=== PATIENT | male | born 1950 | race Caucasian/White ===

== ENCOUNTER 2018-11-17 23:26 | Inpatient (IN) ==
[2018-11-17] MEDS ORDERED: NS 1,000 ML IV ONE ×2 (23:42→23:44)
[2018-11-17] MEDS ORDERED: NS 500 ML IV ONE (23:44)
[2018-11-17] MEDS ORDERED: LEVOPHED 8 MG in D5 1/2 NS 250 ML IV SCH ×4 (23:45)
[2018-11-17] MEDS ORDERED: SOLU-MEDROL IV ONE (23:51)
[2018-11-17] MEDS ORDERED: LEVAQUIN 750 MG/D5W 750 MG/150 ML IVPB IV ONE (23:52)
[2018-11-17] MEDS ORDERED: VANCOMYCIN 1 GM/NS 1 GM/250 ML IVPB IV ONE (23:53)
[2018-11-17 23:55] LABS: BASO# 0.02 X1000 (0.0-0.2); BASO% 0.1 % (0.0-0.8); EOS# 0.01 X1000 (0.0-0.7); EOS% 0.1 % (0.0-10.0); HEMATOCRIT 30.2 % (42.0-52.0); HEMOGLOBIN 9.3 g/dL (14.0-18.0); IMM GRAN# 0.03 X1000 (0.0-0.04); IMM GRAN% 0.2 % (0.0-0.5); LYMPH# 0.41 X1000 (1.2-3.4); MCH 23.8 PG (27-31); MCHC 30.8 g/dL (33-37); MCV 77.2 FL (81-99); MONO# 0.31 X1000 (0.11-0.59); MONO% 2.3 % (1.7-9.3); MPV 12.3 FL (7.4-10.4); NEUT# 12.78 X1000 (1.4-6.5); NEUT% 94.3 % (42.2-75.2); PLT 165 X1000 (130-400); RBC 3.91 XMIL (4.7-6.1); RDW 20.2 % (11.5-14.5); WBC 13.56 X1000 (4.8-10.8)
[2018-11-17] MEDS ORDERED: TYLENOL PO ONE (23:55)
[2018-11-17] MEDS ORDERED: BENADRYL IV ONE (23:56)
[2018-11-17 23:59] LABS: ALLEN TEST YES; BE -1.3 mmoll (-3.0-3.0); BLOOD TYPE ARTERIAL; HCO3-(ACT) 23.9 mmoll (20.0-26.0); METHB 1.1 % (0.0-1.5); O2(CT) 13.3 mL/dL (15.0-23.0); O2HB 95.7 % (95.0-99.0); PCO2(98.6) 32 mmHg (35-45); PO2(98.6) 183 mmHg (60-100); SAMPLE BLOOD; SAO2 100.1 % (95.0-100.0); THB 9.6 g/dL (11.5-17.4); pH(98.6) 7.45 (7.35-7.45)
[2018-11-18] LABS: MODALITY NRB
[2018-11-18 00:42] LABS: ACETAMINOPHEN < 1.2 ug/mL (10-30); AGAP 12; ALB/GLOB RATIO 1.3; ALBUMIN 3.7 g/dL (3.5-5.0); ALKALINE PHOSPHATASE 89 U/L (32-122); BUN 13 mg/dL (8-22); CALCIUM 8.1 mg/dL (8.8-10.2); CHLORIDE 109 mmol/L (98-107); COSMO 284; CREATININE 1.5 mg/dL (0.7-1.2); ESTIMATED GFR 46; GLUCOSE 151 mg/dL (70-104); GOT 30 U/L (10-34); GPT 20 U/L (10-44); POTASSIUM 4.1 mmol/L (3.5-5.1); SALICYLATES < 3.00 mg/dL (3-10); SODIUM 141 mmol/L (136-145); TCO2 20 mmol/L (25-35); TOTAL BILIRUBIN 0.79 mg/dL (0.20-1.00); TOTAL PROTEIN 6.5 g/dL (6.3-8.3)
[2018-11-18 01:24] LABS: CK INDEX 1.6 (0.0-2.5); CK-MB 11.38 ng/mL (0.0-5.0)
[2018-11-18] MEDS ORDERED: TYLENOL PR ONE (01:25)
[2018-11-18 02:34] LABS: URINE SOURCE CATH
[2018-11-18 02:36] LABS: BILIRUBIN URINE NEGATIVE (NEGATIVE); BLOOD URINE NEGATIVE (NEGATIVE); COLOR YELLOW; GLUCOSE URINE NEGATIVE (NEGATIVE); KETONE URINE NEGATIVE (NEGATIVE); LEUKOCYTES URINE NEGATIVE (NEGATIVE); NITRITE URINE NEGATIVE (NEGATIVE); PROTEIN URINE TRACE mg/dL (NEGATIVE); SP GRAVITY URINE 1.011; TURBIDITY URINE CLEAR (CLEAR); UROBILINOGEN URINE NORMAL (NORMAL)
[2018-11-18 02:37] LABS: UR EPITHELIAL CELLS <10 /HPF (<10); URINE BACTERIA NEGATIVE /HPF; URINE RBC <10 /HPF (<10); URINE WBC <10 /HPF (<10)
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
[2018-11-18 02:49] LABS: UR AMPHETAMINES QUAL NONE DETECTED (NONE DETECT); UR BARBITUATES QUAL NONE DETECTED (NONE DETECT); UR BENZODIAZEPIN QUAL NONE DETECTED (NONE DETECT); UR CANNABINOIDS QUAL NONE DETECTED (NONE DETECT); UR COCAINE QUAL NONE DETECTED (NONE DETECT); UR METHADONE QUAL NONE DETECTED (NONE DETECT); UR OPIATES QUAL NONE DETECTED (NONE DETECT); UR OXYCODONE QUAL NONE DETECTED (NONE DETECT); UR PCP QUAL NONE DETECTED (NONE DETECT)
--- NOTE | 2018-11-18 03:01 | HISTORY AND PHYSICAL ---
PRIMARY CARE PHYSICIAN: Dr. Anthony Muniz. CHIEF COMPLAINT: Unresponsive, altered mental status. HISTORY OF PRESENTING ILLNESS: A 68-year-old male with a history of diabetes mellitus type 2, coronary artery disease, COPD, CHF and hyperlipidemia who was brought to the emergency department due to patient was unresponsive. As per family members, he was complaining of being cold and was having some difficulty breathing. Later throughout the night he has a became more altered and confused and was not responsive, so subsequently EMS was called and the patient was brought to the emergency department. In the ED, he was evaluated, he was hypotensive with a systolic blood pressure of 82. His chest x-ray shows possibility of a pneumonia. Subsequently, he will require admission to ICU for further management. At the time of my examination, patient was basically groaning and moaning, and most of the history is obtained from family members. PAST MEDICAL HISTORY: Includes diabetes mellitus type 2, coronary artery disease, COPD, CHF, hyperlipidemia. PAST SURGICAL HISTORY: Coronary artery bypass, recent coronary stent. ALLERGIES: Penicillin. CURRENT MEDICATIONS: Include aspirin 325 mg p.o. daily, atorvastatin 80 mg p.o. daily, carvedilol 3.125 mg p.o. b.i.d., glimepiride 2 mg p.o. b.i.d., isosorbide mononitrate 30 mg p.o. daily, lisinopril 5 mg p.o. daily, metformin 1000 mg p.o. b.i.d., temazepam 15 mg p.o. at bedtime. SOCIAL HISTORY: He has a 40+ pack years history of smoking. No history of alcohol or illicit drug use. FAMILY HISTORY: No history of coronary disease. REVIEW OF SYSTEMS: Unable to obtain due to patient's current condition. PHYSICAL EXAMINATION: GENERAL: The patient is basically moaning but he is resting comfortably. He arouses occasionally. VITAL SIGNS: Pulse 84, respirations 22, blood pressure 69/47. HEENT: Atraumatic, normocephalic. PERRLA. NECK: No masses. CHEST: Rhonchi. CARDIOVASCULAR: Regular rate and rhythm. ABDOMEN: Soft. Positive bowel sounds. EXTREMITIES: Trace edema. NEUROLOGIC: He is awake and arousable. GENITOURINARY: No bladder distention. SKIN: Warm. LABORATORIES AND STUDIES: WBC 13.56, hemoglobin 9.3, hematocrit 30.2, platelets 165,000. Blood gas shows pH 7.45, pCO2 is 32, PO2 is 183, bicarb 23.9. Sodium 141, potassium 4.1, chloride 109, CO2 is 20, BUN is 13, creatinine is 1.5. Glucose is 151. Troponin is 0.200. ASSESSMENT: A 68-year-old male with a history of diabetes mellitus type 2, coronary artery disease, status post recent stents, chronic obstructive pulmonary disease, congestive heart failure, hyperlipidemia who was brought to the emergency department due to patient being unresponsive. Apparently, patient was having chills and was initially complaining of difficulty breathing. He was brought to the emergency department. He still was altered. Due to his presenting symptoms, he will require admission for further management. 1. Altered mental status, unresponsive. 2. Suspected pneumonia. 3. Probable sepsis. 4. Chronic obstructive pulmonary disease exacerbation. 5. Elevated troponin status post recent coronary stent. 6. Congestive heart failure exacerbation. 7. Diabetes mellitus type 2. PLAN: 1. We will admit patient to ICU. 2. Continue with neuro checks. 3. We will check blood cultures, urine cultures and start patient on IV antibiotics. 4. We will continue with DuoNebs and supplemental oxygen. If he worsens, we will put him on BiPAP. If he further deteriorates he may need to be intubated. 5. We will continue to trend troponin's and consult Cardiology. 6. Will monitor blood glucose and put patient on sliding scale insulin regimen. 7. Put patient on DVT prophylaxis with heparin. 8. We will continue to follow and reassess. Make further recommendation based on patient's clinical course. 9. Patient's condition is guarded. cc: Will Martino MD
[2018-11-18] MEDS ORDERED: HEPARIN SUBQ SCH (04:19)
[2018-11-18] MEDS ORDERED: VANCOMYCIN IV PER PHARMACY MISC SCH (04:19)
--- NOTE | 2018-11-18 04:36 | EKG Report ---
Test Performed on : 11/18/2018 02:37:14 AM Test Reason : pain Blood Pressure : / mmHG Vent. Rate : 084 BPM Atrial Rate : 084 BPM P-R Int : 198 ms QRS Dur : 098 ms QT Int : 390 ms P-R-T Axes : 058 -04 083 degrees QTc Int : 460 ms Normal sinus rhythm. Normal ECG When compared with ECG of 28-NOV-2012 00:48, premature atrial complexes. are no longer present Nonspecific T wave abnormality no longer evident in Inferior leads Nonspecific T wave abnormality, improved in Lateral leads Unconfirmed Result
[2018-11-18] MEDS: DUONEB (A & A) INH SCH ×5 (05:29→22:50)
[2018-11-18] MEDS ORDERED: VANCOMYCIN 1,450 MG in NS 250 ML IV ONE (08:00)
--- NOTE | 2018-11-18 08:03 | Diag Imaging Result Doc PS360 ---
EXAM: CHEST-PORTABLE INDICATION: sob TECHNIQUE: One view COMPARISON: 11/27/2012 FINDINGS: There is pulmonary venous congestion and there are bilateral interstitial infiltrates suggesting pulmonary edema. There is a moderate-sized left pleural effusion with adjacent atelectasis and/or infiltrate at the left lung base. There are stable median sternotomy wires and metallic clips projecting over the left lung apex. The cardiac silhouette is prominent. IMPRESSION: Pulmonary venous congestion and interstitial edema with a moderate-sized left pleural effusion and adjacent left basilar atelectasis and/or infiltrate. Electronically signed by Rafita Perkins 11/18/2018 8:01 AM
--- NOTE | 2018-11-18 09:25 | Diag Imaging Result Doc PS360 ---
EXAM: CT HEAD W/O CONTRAST INDICATION: AMS TECHNIQUE: This exam was performed using automated exposure control, adjustment of mA or kV according to patient size, and/or use of iterative reconstruction technique. COMPARISON: None. FINDINGS: There is no definite acute infarct given the limited sensitivity of CT versus MRI. There is no discrete intracranial mass, mass effect, or intracranial hemorrhage. There is chronic appearing left maxillary sinus mucosal thickening. Surrounding soft tissues and bony structures are essentially unremarkable, otherwise. IMPRESSION: No evidence of acute intracranial pathology. Electronically signed by Rafita Perkins 11/18/2018 9:23 AM
[2018-11-18 09:56] LABS: AGAP 12; BUN 18 mg/dL (8-22); CALCIUM 8.2 mg/dL (8.8-10.2); CHLORIDE 105 mmol/L (98-107); COSMO 284; CREATININE 1.9 mg/dL (0.7-1.2); GLUCOSE 221 mg/dL (70-104); POTASSIUM 4.8 mmol/L (3.5-5.1); SODIUM 138 mmol/L (136-145); TCO2 21 mmol/L (25-35)
[2018-11-18] MEDS ORDERED: LOVENOX SUBQ SCH (10:30)
[2018-11-18] MEDS ORDERED: LASIX IV ONE (10:30)
[2018-11-18] MEDS: ASPIRIN PO SCH (11:07)
[2018-11-18] MEDS: PLAVIX PO SCH (11:07)
--- NOTE | 2018-11-18 11:08 | PROGRESS NOTE ---
DATE: 11/18/2018 BRIEF NOTE: Patient admitted overnight, early this morning with hypotension, dyspnea, became unresponsive at home. Family called EMS to bring him in. Here found to have significant hypotension with blood a pressure as low as 63/50. Did not respond to initial fluid so was put on pressors overnight but now improved and off of Levophed. The patient now awake, fully oriented. Does complain of cough for the last several days but no fever, chills. No current dyspnea. Patient also complains this morning of right hand and foot numbness. He is unable to tell me exactly when this started. He does state that he does not believe he had it before he passed out last night. The patient is not having any current chest pain, but troponin continues to trend up from 0.2 to 0.8. Cardiology has been consulted and is being notified of the results. Chest x-ray was most consistent with edema, but may have some aspect of pneumonia as well. On empiric antibiotics for now with vancomycin and Levaquin, which we will continue. BNP obtained which was markedly elevated at almost 29,000. No recent baseline to compare to. Last BNP in our system was 963 in 2012. Given evidence of edema on chest x-ray as well as markedly elevated BNP, 1+ to 2+ pitting edema of the lower extremities and some bibasilar crackles on lung exam, we will go ahead and give him some Lasix. Continue to monitor in ICU to make sure his blood pressure tolerates the diuresis. Will await further Cardiology recommendations about whether he may need digoxin or dobutamine drip. Patient also with elevated D-dimer raising concern for pulmonary thromboembolism. The patient's kidney function worsens, unable to obtain CTA. We will check V/Q scan and noncontrast CT of the chest to try to clarify. We will go ahead and give a dose of therapeutic Lovenox until that can be obtained. On neurologic exam, patient does appear to have numbness of the fingers on the right hand and the right foot from the distal forefoot through the toes. Strength in the right lower extremity is full despite the numbness. 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 In the more proximal right upper extremity, strength appears to be full and symmetric. Symptoms are odd. Dannyt known well time is not known, so would not be a candidate for tPA if this is a stroke. Also patient already on dual anti-platelet therapy and a statin, so not much else to do medically for stroke. Given the oddity of his symptoms, we will ask for Neurology's opinion. His foot really seems like diabetic peripheral neuropathy but patient adamantly denies previous numbness in the foot. Currently holding the patient's beta-meseret and Entresto given hypotension on admission and worsening kidney failure now, but we will try to get this back on if his blood pressure remains stable and his kidney function stabilizes.
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
--- NOTE | 2018-11-18 14:58 | Diag Imaging Result Doc PS360 ---
EXAM: LUNG SCAN / VQ INDICATION: cough, dyspnea, elevated d-dimer TECHNIQUE: 40 mCi of aerosolized technetium 99 DTPA was administered for the ventilation portion of the scan. 5.8 mCi of technetium 99 MAA was administered intravenously for the perfusion portion of the scan. COMPARISON: Chest radiograph dated 11/18/2018. No prior nuclear medicine V/Q scan is available for comparison. FINDINGS: There is a matched posterior defect on the left that spans the entire left lung and appears to correspond to a pleural effusion that can be seen on a chest CT performed earlier today. No other discrete perfusion defects are identified. IMPRESSION: Low probability of pulmonary embolism. Electronically signed by Rafita Perkins 11/18/2018 2:55 PM
--- NOTE | 2018-11-18 15:10 | Diag Imaging Result Doc PS360 ---
EXAM: CT THORAX W/O CONTRAST INDICATION: dyspnea, edema vs pneumonia TECHNIQUE: This exam was performed using automated exposure control, adjustment of mA or kV according to patient size, and/or use of iterative reconstruction technique. COMPARISON: None. FINDINGS: There is moderate to advanced pulmonary emphysema. There is a moderate-sized left pleural effusion and a trace right effusion. There is left basilar atelectasis and there is minimal atelectasis at the right lung base. Superimposed pneumonia at the left lung base is possible in the right clinical scenario. There is chronic appearing pleural thickening anterior to the lingula and there is mild lingular scarring. There are a few calcified granulomata at the right lung base. There are CABG changes. There are small shotty nonspecific mediastinal lymph nodes. The heart is prominent. Limited views of the upper abdomen are essentially unremarkable except for trace fluid around the liver. IMPRESSION: 1.Pulmonary emphysema. 2.Moderate-sized left pleural effusion and trace right effusion with left basilar atelectasis and minimal right basilar atelectasis. Superimposed infection at the left lung base is possible in the right clinical scenario. 3.Chronic appearing pleural thickening anterior to the lingula with underlying parenchymal scarring. 4.Other incidental/nonacute findings detailed above. Electronically signed by Rafita Perkins 11/18/2018 3:08 PM
[2018-11-18] MEDS ORDERED: GLUCOPHAGE PO ONE (17:00)
[2018-11-19] MEDS: LEVAQUIN 500 MG/D5W 500 MG/100 ML IVPB IV SCH (01:24)
[2018-11-19] MEDS: VANCOMYCIN 1,800 MG in NS 250 ML IV SCH (03:06)
[2018-11-19] MEDS: DUONEB (A & A) INH SCH ×7 (03:14→22:23)
[2018-11-19 05:44] LABS: BASO# 0.01 X1000 (0.0-0.2); BASO% 0.1 % (0.0-0.8); HEMATOCRIT 28.6 % (42.0-52.0); HEMOGLOBIN 8.7 g/dL (14.0-18.0); LYMPH# 0.93 X1000 (1.2-3.4); LYMPH% 9.1 % (20.5-51.1); MCH 23.6 PG (27-31); MCHC 30.4 g/dL (33-37); MCV 77.7 FL (81-99); MONO% 2.9 % (1.7-9.3); NEUT# 9.03 X1000 (1.4-6.5); NEUT% 87.9 % (42.2-75.2); PLT 109 X1000 (130-400); RBC 3.68 XMIL (4.7-6.1); RDW 20.2 % (11.5-14.5); WBC 10.27 X1000 (4.8-10.8)
[2018-11-19 06:43] LABS: CALCIUM 7.9 mg/dL (8.8-10.2); CREATININE 1.7 mg/dL (0.7-1.2); POTASSIUM 4.5 mmol/L (3.5-5.1)
[2018-11-19 07:23] LABS: BANDS 4 % (0-1); LYMPHS 12 % (21-51); SEGS 84 % (42-75)
[2018-11-19 07:24] LABS: ANISOCYTOSIS 1+; HYPOCHROM 1+; POIKILOCYTOSIS 1+
[2018-11-19 07:25] LABS: BURR CELLS 1+; LARGE PLATELETS 1+
--- NOTE | 2018-11-19 07:51 | Diag Imaging Result Doc PS360 ---
EXAM: CHEST-1 VIEW INDICATION: chf TECHNIQUE: One view COMPARISON: 11/18/2018 FINDINGS: Bilateral infiltrates and increased central vasculature has improved marginally suggesting slight improvement of pulmonary venous congestion and interstitial edema. The left pleural effusion appears smaller but this may be due to differences in positioning. There is better aeration of the left lung base. No new consolidation is identified. Cardiac silhouette is stable. IMPRESSION: Interval slight improvement. Electronically signed by Rafita Perkins 11/19/2018 7:49 AM
[2018-11-19] MEDS: LASIX PO SCH ×2 (08:21→21:33)
[2018-11-19] MEDS: ENTRESTO 24 MG-26 MG TABLET PO SCH (08:21)
[2018-11-19] MEDS: ASPIRIN PO SCH (08:21)
[2018-11-19] MEDS: TOPROL XL PO SCH (08:21)
[2018-11-19] MEDS: LIPITOR PO SCH (08:21)
[2018-11-19] MEDS: PLAVIX PO SCH (08:21)
--- NOTE | 2018-11-19 08:48 | EKG Report ---
Test Performed on : 11/19/2018 06:38:46 AM Test Reason : Elevated Troponin Blood Pressure : / mmHG Vent. Rate : 088 BPM Atrial Rate : 088 BPM P-R Int : 166 ms QRS Dur : 104 ms QT Int : 388 ms P-R-T Axes : 061 006 101 degrees QTc Int : 469 ms Normal sinus rhythm. Abnormal QRS-T angle, consider primary T wave abnormality Abnormal ECG When compared with ECG of 18-NOV-2018 02:37, (Unconfirmed) No significant change was found Confirmed by Levi VENEGAS, Hai Lai ([id number]) on 11/19/2018 9:43:19 PM
[2018-11-19] MEDS ORDERED: GLUCOPHAGE PO SCH (09:00)
[2018-11-19] MEDS: LYRICA PO SCH ×2 (09:11→21:33)
[2018-11-19] MEDS: HUMALOG SUBQ SCH ×3 (12:22→21:33)
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
--- NOTE | 2018-11-19 15:33 | ECHO REPORT ---
ORDER DATE: 11/19/2018 INTERPRETING PHYSICIAN: Dr. Taiwo Fofana. ECHOCARDIOGRAPHIC MEASUREMENTS: 1. Interventricular septum: 1.2 cm. 2. Left ventricular posterior wall: 1.3 cm. 3. Diastolic diameter: 5.1 cm. 4. Left atrium: 3.9 cm. 5. Aorta: 3 cm. SUMMARY OF THE 2-DIMENSIONAL IMAGIN. Technically suboptimal study. Poor acoustic window. 2. Tricuspid valve was normal. 3. There was calcification of the mitral valve leaflets. There is mitral annular calcification. 4. Aortic valve leaflets are calcified. Aortic valve leaflets not well visualized. 5. There is mild left atrial enlargement. 6. Tricuspid valve was normal. 7. There is moderate tricuspid regurgitation. Peak velocity across the tricuspid valve was 3.2 m/sec. 8. Peak velocity across the aortic valve was 3.2 m/sec with a mean gradient of 22 mmHg. 9. Aortic valve leaflets were not well visualized. This there is at least [id number] aortic stenosis. 10. Normal left ventricular cavity size. Mild concentric left ventricular hypertrophy. 11. Endocardium not well visualized in all views. There is anteroseptal hypokinesis. Left ventricular ejection fraction estimated at 40%. 12. There is no pericardial effusion. 13. There is mild mitral regurgitation. 14. There is no obvious intracardiac mass or thrombus. cc: Taiwo Fofana MD
[2018-11-20] MEDS: LEVAQUIN 500 MG/D5W 500 MG/100 ML IVPB IV SCH (02:23)
[2018-11-20] MEDS: DUONEB (A & A) INH SCH ×6 (02:30→23:15)
[2018-11-20] MEDS: VANCOMYCIN 1,800 MG in NS 250 ML IV SCH (03:33)
[2018-11-20] MEDS: HUMALOG SUBQ SCH ×4 (06:28→21:24)
[2018-11-20] MEDS: PLAVIX PO SCH (08:23)
[2018-11-20] MEDS: TOPROL XL PO SCH (08:23)
[2018-11-20] MEDS: ASPIRIN PO SCH (08:23)
[2018-11-20] MEDS: ENTRESTO 24 MG-26 MG TABLET PO SCH (08:23)
[2018-11-20] MEDS: LASIX PO SCH ×2 (08:23→21:24)
[2018-11-20] MEDS: LIPITOR PO SCH (08:23)
[2018-11-20] MEDS: LYRICA PO SCH ×2 (09:02→21:24)
[2018-11-20 09:23] LABS: CALCIUM 8.9 mg/dL (8.8-10.2); CREATININE 1.4 mg/dL (0.7-1.2); POTASSIUM 4.3 mmol/L (3.5-5.1)
[2018-11-20 09:55] LABS: BASO# 0.02 X1000 (0.0-0.2); BASO% 0.3 % (0.0-0.8); EOS# 0.08 X1000 (0.0-0.7); EOS% 1.2 % (0.0-10.0); HEMATOCRIT 28.9 % (42.0-52.0); HEMOGLOBIN 8.8 g/dL (14.0-18.0); LYMPH# 1.01 X1000 (1.2-3.4); LYMPH% 15.1 % (20.5-51.1); MCH 23.8 PG (27-31); MCHC 30.4 g/dL (33-37); MCV 78.3 FL (81-99); MONO% 4.5 % (1.7-9.3); MPV 12.1 FL (7.4-10.4); NEUT# 5.27 X1000 (1.4-6.5); NEUT% 78.9 % (42.2-75.2); PLT 128 X1000 (130-400); RBC 3.69 XMIL (4.7-6.1); RDW 20.4 % (11.5-14.5); WBC 6.68 X1000 (4.8-10.8)
[2018-11-20 10:41] LABS: BANDS 4 % (0-1); EOS 2 % (1-10); HYPOCHROM 1+; LARGE PLATELETS 1+; LYMPHS 14 % (21-51); MONO 2 % (1-9); SEGS 78 % (42-75)
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
[2018-11-20 13:26] LABS: CK INDEX 0.8 (0.0-2.5); CK-MB 9.39 ng/mL (0.0-5.0)
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
[2018-11-21] MEDS: LEVAQUIN 500 MG/D5W 500 MG/100 ML IVPB IV SCH (01:55)
[2018-11-21] MEDS: DUONEB (A & A) INH SCH ×2 (03:50→08:09)
[2018-11-21] MEDS: HUMALOG SUBQ SCH (06:28)
[2018-11-21] MEDS: VANCOMYCIN 1,800 MG in NS 250 ML IV SCH (07:19)
[2018-11-21] MEDS: LASIX PO SCH (08:12)
[2018-11-21] MEDS: PLAVIX PO SCH (08:12)
[2018-11-21] MEDS: TOPROL XL PO SCH (08:12)
[2018-11-21] MEDS: LIPITOR PO SCH (08:13)
[2018-11-21] MEDS: ASPIRIN PO SCH (08:13)
[2018-11-21] MEDS: ENTRESTO 24 MG-26 MG TABLET PO SCH (08:13)
[2018-11-21 08:39] VITALS: BP 99/45
[2018-11-21] MEDS: LYRICA PO SCH (08:43)
[2018-11-21 09:18] LABS: HEMATOCRIT 30.1 % (42.0-52.0); HEMOGLOBIN 9.3 g/dL (14.0-18.0); MCHC 30.9 g/dL (33-37); MCV 77.6 FL (81-99); MPV 11.8 FL (7.4-10.4); RBC 3.88 XMIL (4.7-6.1); RDW 20.4 % (11.5-14.5); WBC 6.22 X1000 (4.8-10.8)
[2018-11-21 09:28] LABS: INR 1.16
[2018-11-21 10:14] LABS: CALCIUM 8.7 mg/dL (8.8-10.2); CREATININE 1.3 mg/dL (0.7-1.2); MAGNESIUM 1.5 mg/dL (1.5-2.7); POTASSIUM 4.1 mmol/L (3.5-5.1)
--- NOTE | 2018-11-21 17:23 | DISCHARGE SUMMARY ---
ADMISSION DATE: 11/18/2018 DISCHARGE DATE: 11/21/2018 DISPOSITION: [facility]. REASON: Higher level of care. ADMISSION DIAGNOSES: 1. Altered mental status. 2. Suspected pneumonia. 3. Probable sepsis. 4. Elevated troponin. 5. Congestive heart failure. DIAGNOSES AT THE TIME OF DISCHARGE: 1. Altered mental status on presentation presumably from metabolic/hypoxemia. 2. Acute kidney injury. 3. Severe chronic obstructive pulmonary disease with emphysema. 4. Congestive heart failure secondary to ischemic heart disease with ejection fraction of 40%. Suspected multifocal pneumonia. 1. Tobacco use and abuse. 2. Elevated troponins secondary to non-STEMI. PRESENTING COMPLAIN: Unresponsiveness, altered mental status. HISTORY OF PRESENTING COMPLAINT: Mr. Britton is a 68-year-old male who was brought into the emergency room because of unresponsiveness. As per the family, the patient was complaining of being cold and was having some difficulty breathing. He became more altered and confused and unresponsive. EMS was called, documented that the EMS found that the hypoxemic and hypotensive, was brought into the emergency department where he was evaluated and initial chest x-ray did reveal pulmonary venous congestion, moderate sized left pleural effusion and adjacent bibasilar atelectasis and/or infiltrate. This was followed up by a CT scan which showed a moderate left pleural effusion superimposed infection in he left possibly in the right clinical scenario. Mr. Britton was subsequently admitted to the ICU for intensive care. HOSPITAL COURSE: Mr. Britton was started on broad-spectrum IV antimicrobial therapy and gently hydrated. Creatinine continues to be trending down. It was 1.3 today. Troponins were also trending up. A decision was made by Cardiology to transfer Mr. Britton because he needs a higher level of care. This morning, there has been a bed available in [place] for Mr. Britton. He is therefore being transferred there for cardiac evaluation, possible catheterization and intervention as needed. At the time of transfer, Mr. Britton's blood pressure was 99/45, pulse of 78, respirations 14. Temperature 98.8 degrees. He was being sent in stable condition. Time spent for discharge is 35 minutes. cc: Misael Ramos MD
== END 2018-11-21 09:55 | disposition short-term general hospital (02) | DRG 280 ==
LOC: ED 23:26 → SUATTDRO 11-18 04:11 → ICU 11-18 04:11 → 2N 11-18 16:30
PROVIDERS: ATTEND Internal Medicine